=== PATIENT | female | born 1990 | race Caucasian/White ===

== ENCOUNTER → 2021-06-01 | Outpatient (CLI) | payer SELFPAY ==
--- NOTE | 2021-06-01 08:01 | US ---
EXAMINATION TYPE: US abdomen limited DATE OF EXAM: 06/01/2021 COMPARISON: NONE CLINICAL HISTORY: R94.5 ABN LIVER STUDIES,F10.10 ALCOHOL ABUSE. EXAM MEASUREMENTS: Liver Length: 13.5 cm Gallbladder Wall: 0.2 cm CBD: 0.4 cm Right Kidney: 10.0 x 5.7 x 4.4 cm Pancreas: Obscured by bowel gas Liver: right liver attenuated posteriorly suggests fatty liver Gallbladder: wnl Evidence for sonographic Luna's sign: no CBD: wnl Right Kidney: No hydronephrosis or masses seen IMPRESSION: 1. Heterogeneous pattern to the liver can be seen with hepatic steatosis, hepatocellular disease or h epatitis, correlate clinically.
== END | disposition home or self-care (01) ==
LOC: RADUSWWP 07:32
PROVIDERS: ATTEND Family Medicine
DX: K76.0 Fatty (change of) liver, not elsewhere classified (principal); F10.10 Alcohol abuse, uncomplicated; K75.9 Inflammatory liver disease, unspecified; R94.5 Abnormal results of liver function studies
CPT/HCPCS: 76705

== ENCOUNTER 2021-07-20 06:28 | Day surgery (SDC) | payer OTHER ==
[~2021-07-20 06:28] MED LIST: DEXAMETHASONE SOD PHOSPHATE 4 MG/ML 1 ML VIAL IV ONE; LACTATED RINGERS 1,000 ML IV SCH; ONDANSETRON 4 MG/2 ML VIAL IVP ONE; Pre Op ABX Message 1 EACH MISC MISCELLANE ONE
--- NOTE | 2021-07-20 06:52 | P.HPOB ---
History of Present Illness H&P Date: 07/20/21 Chief Complaint: HGSIL A 31-year-old presents for loop electrocautery excision procedure. She had a high-grade Pap and then JORGE 2 on her biopsy from a colposcopy. Review of Systems All systems: negative Constitutional: Denies chills, Denies fever Eyes: denies blurred vision, denies pain Ears, nose, mouth and throat: Denies headache, Denies sore throat Cardiovascular: Denies chest pain, Denies shortness of breath Respiratory: Denies cough Gastrointestinal: Denies abdominal pain, Denies diarrhea, Denies nausea, Denies vomiting Genitourinary: Denies dysuria, Denies hematuria Musculoskeletal: Denies myalgias Integumentary: Denies pruritus, Denies rash Neurological: Denies numbness, Denies weakness Psychiatric: Denies anxiety, Denies depression Endocrine: Denies fatigue, Denies weight change Past Medical History Past Medical History: No Reported History History of Any Multi-Drug Resistant Organisms: None Reported Past Surgical History: No Surgical Hx Reported Additional Past Surgical History / Comment(s): WISDOM TEETH REMOVED Past Anesthesia/Blood Transfusion Reactions: No Reported Reaction Additional Past Anesthesia/Blood Transfusion Reaction / Comment(s): HAD NEVER GENERAL ANESTHESIA Past Psychological History: Anxiety, Depression Smoking Status: Never smoker Past Alcohol Use History: Occasional Past Drug Use History: None Reported - Past Family History Mother Family Medical History: No Reported History Medications and Allergies Home Medications Medication Instructions Recorded Confirmed Type Citalopram Hydrobromide [CeleXA] 10 mg PO QAM 07/16/21 07/16/21 History Ibuprofen [Motrin Ib] 200 - 400 mg PO Q6H PRN 07/16/21 07/16/21 History buPROPion [Wellbutrin] 75 mg PO QAM 07/16/21 07/16/21 History Allergies Allergy/AdvReac Type Severity Reaction Status Date / Time No Known Allergies Allergy Verified 07/16/21 12:24 Exam Osteopathic Statement: *. No significant issues noted on an osteopathic structural exam other than those noted in the History and Physical/Consult. Heart: Regular rate and rhythm Lungs: Clear to auscultation bilaterally Abdomen: Soft, nontender Extremities: Negative Homans sign Assessment and Plan (1) HGSIL (high grade squamous intraepithelial dysplasia) Current Visit: Yes Status: Acute Code(s): [id number] - SNOMED Code(s): 307128393 Plan: 1. JIMMIE
[2021-07-20] MEDS ORDERED: HYDROmorphone 0.5 MG/0.5 ML SYRINGE IVP PRN (07:00)
[2021-07-20] MEDS ORDERED: LIDOCAINE 1% (10MG/ML) FOR IV START INTRADERMA ONE (07:05)
[2021-07-20] MEDS ORDERED: LIDOCAINE 1% INJ 10MG/ML (20 ML MDV) ONE (07:18)
[2021-07-20] MEDS ORDERED: MIDAZOLAM 2 MG/2 ML VIAL ONE (07:18)
[2021-07-20] MEDS ORDERED: fentaNYL (PF) 50 MCG/ML 2 ML AMP ONE (07:18)
[2021-07-20] MEDS ORDERED: KETOROLAC 15 MG/ML 1 ML VIAL ONE (07:18)
[2021-07-20] MEDS ORDERED: PROPOFOL 10 MG/ML 20 ML VIAL IV ONE (07:18)
[2021-07-20] MEDS ORDERED: FERRIC SUBSULFATE (MONSELS) JAR TOPICAL ONE (07:40)
--- NOTE | 2021-07-20 07:58 | P.OP ---
Date of Procedure: 07/20/21 Preoperative Diagnosis: 1. HGSIL Postoperative Diagnosis: 1. same Procedure(s) Performed: LEEP Anesthesia: MAC (f) Surgeon: Skye Barnhart Estimated Blood Loss (ml): 50 IV fluids (ml): 500 Urine output (ml): 10 Pathology: other (cervical cone) Condition: stable Disposition: PACU Description of Procedure: Patient is taken the operating room where general anesthesia was obtained without difficulties. She is prepped and draped in normal sterile fashion dorsal lithotomy position, legs placed in candycane stirrups. Bladder was drained of all urine. A coated bivalve speculum was placed in the vagina. The 2 cm loop was used to obtain a biopsy of the cervix sweeping from left to right one more sweep from the posterior lip of the cervix was done. The ball cautery was used to cauterize the crater left in the cervix and obtain hemostasis. Monsel's was also placed. Patient tolerated procedure well, sponge and instrument counts correct 2. She is taken to recovery in stable condition.
[2021-07-20 08:02] VITALS: TEMP 97.1
[2021-07-20] MEDS ORDERED: Acetaminophen-Codeine 300-30mg TAB ONE ×2 (09:06→09:10)
[2021-07-20] MEDS ORDERED: Acetaminophen-Codeine 300-30mg TAB PO ONE ×2 (09:09→09:13)
[2021-07-20 09:26] VITALS: BP 133/90; PULSE 73; RESP 16
== END 2021-07-20 09:49 | disposition home or self-care (01) ==
LOC: OR 06:28
PROVIDERS: ATTEND Obstetrics & Gynecology
DX: N87.1 Moderate cervical dysplasia (principal); F32.9 Major depressive disorder, single episode, unspecified; F41.9 Anxiety disorder, unspecified; Z79.1 Long term (current) use of non-steroidal anti-inflammatories (NSAID)
CPT/HCPCS: 57522; 81025; J2250; J1100; J2405; J2001; J3010; J1885; J2704; 88307